=== PATIENT | female | born 1940 | race Caucasian/White ===

== ENCOUNTER 2019-07-29 13:59 | Inpatient (IN) ==
[2019-07-29] MEDS ORDERED: COLACE PO PRN (14:13)
[2019-07-29] MEDS ORDERED: TYLENOL PO PRN (14:13)
[2019-07-29] MEDS ORDERED: SALINE LOCK IV FLUID XX ONE (14:13)
[2019-07-29] MEDS ORDERED: ZOFRAN IV PRN (14:13)
[2019-07-29] MEDS ORDERED: LEVAQUIN 500 MG/D5W 500 MG/100 ML IVPB IV ONE (14:22)
[2019-07-29 16:56] LABS: BASO# 0.01 X1000 (0.0-0.2); BASO% 0.2 % (0.0-0.8); EOS# 0.21 X1000 (0.0-0.7); EOS% 3.3 % (0.0-10.0); HEMATOCRIT 37.9 % (37.0-47.0); HEMOGLOBIN 12.5 g/dL (12.0-16.0); LYMPH# 1.54 X1000 (1.2-3.4); LYMPH% 24.6 % (20.5-51.1); MCH 31.1 PG (27-31); MCV 94.3 FL (81-99); MONO# 0.59 X1000 (0.11-0.59); MONO% 9.4 % (1.7-9.3); MPV 10.1 FL (7.4-10.4); NEUT# 3.92 X1000 (1.4-6.5); NEUT% 62.5 % (42.2-75.2); PLT 257 X1000 (130-400); RBC 4.02 XMIL (4.2-5.4); RDW 13.5 % (11.5-14.5); WBC 6.27 X1000 (4.8-10.8)
[2019-07-29 17:00] LABS: INR 0.93; PROTIME 12.5 Seconds (11.0-16.0)
[2019-07-29 17:11] LABS: ALB/GLOB RATIO 1.6; ALBUMIN 3.8 g/dL (3.5-5.0); CALCIUM 8.2 mg/dL (8.8-10.2); CREATININE 1.2 mg/dL (0.5-0.9); POTASSIUM 4.1 mmol/L (3.5-5.1); TOTAL BILIRUBIN 0.22 mg/dL (0.20-1.00); TOTAL PROTEIN 6.2 g/dL (6.3-8.3)
--- NOTE | 2019-07-29 17:27 | Diag Imaging Result Doc PS360 ---
EXAM: CT EXT LOWER LEFT W/O CON HISTORY: LLE anterior schinn abscess r/o gaseous collection TECHNIQUE: CT left lower extremity without contrast. COMPARISON: None. No plain films obtained. FINDINGS: No fracture. No dislocation. Minimal anterior skin thickening and subcutaneous edema inferiorly. No well-defined fluid collection. No air. IMPRESSION: Minimal skin thickening and subcutaneous edema. This exam was performed using automated exposure control, adjustment of mA or kV according to patient size, and/or use of iterative reconstruction technique. Electronically signed by Ang Cervantes 07/29/2019 5:25 PM
--- NOTE | 2019-07-29 17:36 | HISTORY AND PHYSICAL ---
ATTENDING PHYSICIAN: Miguel Ángel Jackson DO. ADMITTING PHYSICIAN: Miguel Ángel Jackson DO. CONSULTING PHYSICIANS: Including Dr. Jose Morin, General Surgery service and Dr. Roderick Lopez, Infectious Disease service. HPI: Mrs. Guerra is a pleasant 79-year-old female who carries a variety of diagnoses including but not limited to idiopathic scoliosis involving the thoracic and lumbosacral region, presence of cardiac pacemaker, osteoporosis, obstructive sleep apnea, elevated liver enzymes, dyslipidemia, insomnia, hypothyroidism, history of simple cysts of the liver, chronic pain syndrome, reflux and a history of spinal stenosis presented to the internal medicine clinic on the for annual wellness visit as well as evaluation for lesion on the left lower extremity. There was noted a 3 x 1.3 cm erythematous base with a central raised nodule somewhat concerning for a keratoacanthoma versus skin lesion which had become secondarily infected with subcutaneous abscess, based on the absence of fluctuance and evidence of lymphangitic spread and other systemic symptoms it was felt that starting her on oral doxycycline with interval followup in 7 days was appropriate however she called me on Wednesday stating the pain of the lower extremity has awakened her in the middle of the night with throbbing and she is unable to bear weight on that extremity, the area has opened up and started to drain mucopurulent drainage. Based on its size and waking her up from sleep at night creating some functionally issues with waking and bearing weight she is admitted to the internal medicine service for further diagnostic imaging and surgical consultation for I and D unit. She will be a direct admit through the emergency room. MEDICATIONS ON ADMISSION: Meloxicam 7.5 mg once daily, C-Naltrexone 6 mg 2 tablets daily, Zofran 4 mg as needed, alprazolam 0.25 mg p.o. daily p.r.n., Percocet 10/325 one p.o. q.i.d. p.r.n. this is managed through he pain clinic, Lomotil 0.025/2.5 one p.o. daily p.r.n., multivitamin over-the- counter, glucosamine llft-fgw-mkkdegf, cumin efoj-iqz-bzrqwhs, collagen kxuw-ryf-pptkeys, probiotic aoba-qgp-rphowkv, Atrovent nasal spray 1 spray each nostril t.i.d. p.r.n., Restoril 30 mg p.o. at bedtime, Prilosec 40 mg once daily and Topical Voltaren gel 2-4 g apply as directed. FAMILY HISTORY: Father 76 possible heart attack, mother 91 obstructive bowel also history of cervical cancer, brother 29 years old accidental drowning, brother 13 accidental hunting shooting sister 32 motor vehicle accident with history of breast cancer and brother 65 hit by a car while riding a bike, brother 84 secondary to heart problems, patient is the sole survivor of her family as of summer 2018. Patient's end of life/ advanced directive is reasonable medical effort. Patient is with 2 children 61 - year-old boy and 59-year-old boy she has 6 grandchildren 2 step grandchildren and 13 great grandchildren, she has been for the 2nd time in 2019 for less than a year after 48 and half years of previous in 2013. 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 Other specialist involved in care including cardiology Dr. Goodson, gastroenterology Dr. Rosario, ophthalmology Dr. Santos, pain clinical specialist medical device Dr. Peacock, pulmonary medicine Dr. Youngblood, urology Dr. Joshua and Dr. Patton, dermatology Dr. Dominick Jackson and automatic oven operator Dr. Corona in [place]. IMMUNIZATION STATUS: Patient in need of Tdap, patient opting out of Prevnar 13 as of 03/16/2019, patient opting out of a varicella as of 03/16/2019, patient opting out of Pneumovax as of 03/16/2019, patient opting out of viral influenza as of 03/16/2019. PAST SURGICAL HISTORY: Back surgery in 2000 and in 2013, 2001 for lumbar back surgery in 2013 for ruptured disk L4-L5, hysterectomy without oophorectomy in , basal cell cancer removed from the nose in January, pacemaker placement in 1998, redo in 2010, venous ligation in the in the left leg in 12/15/2017, has been no surgery since December 2017 as of March 2019. REVIEW OF SYSTEMS: Unremarkable except that noted within the HPI above. Recent vitals blood pressure 130/80, pulse at 64, temperature at 97.5 degrees, saturating 90% on room air, patient weighed 164 pounds, BMI is 28.21.HEENT: Normocephalic, atraumatic, pupils are unremarkable. Neck: Soft and supple without lymphadenopathy or bruits. Cardiovascular: Regular rate and rhythm without murmurs gallops or rubs. Lungs: Clear. Abdomen: Benign. Extremities: Left lower extremity showing a left lower anterior spicer region with a 3 cm erythematous based and a central 1+ cm raised papule/lesion which had the appearance of a irritated keratoacanthoma versus a local abscesses versus basal cell, there is no evidence of lymphangitic spread, there is minimal tenderness with dorsi and plantar flexion of the left foot and ankle. LABORATORY: Ordered at the time admission including a CBC, CMP and PT/INR. IMPRESSION: 79-year-old with left lower extremity lesion complicated by mucopurulent drainage and now nocturnal pain based on progression over the past 48 to 72 hours she will be admitted to the internal medicine service with general surgery and infectious disease consultation, will be proceeding with a noncontrasted imaging study of the left lower extremity to rule out any evidence of anaerobic infection as manifested by radiographic evidence of the gaseous collection in the subcutaneous tissue, she will be transitioned to Levaquin 500 mg once daily IV,d doxycycline 100 mg twice daily will be stopped, she is allergic only to Latex and Macrobid. Awaiting further diagnostic imaging and recommendations from specialist, the patient and understand the course of treatment and plan, they have been directed to the emergency room and the floor has been instructed to call me when she arrives to the floor, no further issues at this time. cc: Miguel Ángel Jackson, DO GALL[place]AY
[2019-07-29] MEDS: NS 1,000 ML IV SCH (17:44)
[2019-07-29 19:09] LABS: URINE SOURCE CLEAN CATCH
[2019-07-29 19:13] LABS: BILIRUBIN URINE NEGATIVE (NEGATIVE); BLOOD URINE NEGATIVE (NEGATIVE); COLOR YELLOW; GLUCOSE URINE NEGATIVE (NEGATIVE); KETONE URINE NEGATIVE (NEGATIVE); LEUKOCYTES URINE TRACE (NEGATIVE); NITRITE URINE NEGATIVE (NEGATIVE); PROTEIN URINE NEGATIVE (NEGATIVE); SP GRAVITY URINE 1.014; TURBIDITY URINE CLEAR (CLEAR); UR EPITHELIAL CELLS <10 /HPF (<10); URINE BACTERIA 1+ /HPF; URINE RBC <10 /HPF (<10); URINE WBC <10 /HPF (<10); UROBILINOGEN URINE NORMAL (NORMAL)
[2019-07-30] MEDS: NS 1,000 ML IV SCH (09:44)
[2019-07-30] MEDS ORDERED: XYLOCAINE 1% INJ ONE (11:27)
[2019-07-30] MEDS ORDERED: MAXIPIME 2 GM in NS 100 ML IV SCH (12:00)
--- NOTE | 2019-07-30 12:46 | GENERAL SURGERY CONSULTATION ---
DATE: 07/30/2019 REASON FOR CONSULTATION: Left leg skin lesion. HISTORY OF PRESENT ILLNESS: This is an 79-year-old female who presents with a several week history of pain and swelling of her left lower leg skin. She had a history of a fall 15 years ago with trauma to the anterior left spicer with a depression left behind. She then developed a raised tender red area in this vicinity around 07/12/2019 or 07/13/2019. It has been painful to touch. It has also had some pain at rest and just recently over the last couple days has started draining some purulent drainage. She denies fever, chills, significant swelling of the leg or other systemic complaints. She had started oral doxycycline prior to admission without improvement. MEDICATIONS ON ADMISSION: Meloxicam, naltrexone, Zofran, alprazolam, Percocet, Lomotil, multivitamin, glucosamine, probiotic, Atrovent, Restoril, Prilosec. PAST SURGICAL HISTORY: Back surgery, hysterectomy, basal cell cancer removed from the nose, pacemaker placement, revision of pacemaker placement, left leg vein ligation. SOCIAL HISTORY: She quit smoking years ago. She drinks wine daily and has been retired for some time. FAMILY HISTORY: Positive for coronary artery disease, cervical cancer, breast cancer. REVIEW OF SYSTEMS: Ten systems reviewed and negative except as noted above. PHYSICAL EXAMINATION: Vital Signs: Temperature 97.7 degrees, pulse 61, respirations 18, blood pressure 149/81, O2 saturation 97%. General: Well-developed elderly female in no distress who looks stated age. HEENT: Normocephalic, atraumatic. Extraocular muscles intact. Pupils equal, round, reactive to light. Sclerae anicteric. Moist mucous membranes. Neck: Supple. No thyromegaly. CV: Regular rate and rhythm. Respiratory: Bilateral breath sounds. No work of breathing. Gastrointestinal: Soft, no organomegaly or mass. Nontender. Musculoskeletal: Moves all extremities equally well. Extremities: No clubbing, cyanosis, or edema. Skin: On the left anterior lower leg, there is a raised skin lesion just smaller than the size of a dime. There is some necrotic skin with underlying purulent drainage. It is tender to the touch. There is some mild surrounding erythema. LABORATORY: CBC and metabolic profile reviewed and unremarkable. Urinalysis negative. IMAGING: CT of the left leg shows minimal skin thickening and subcutaneous edema. ASSESSMENT AND PLAN: An 79-year-old female with left leg skin lesion of unclear etiology with secondary infection. We will plan debridement, drainage and skin biopsy today. I discussed the risks and benefits with her including bleeding, slowly healing wound, ongoing infection and other imponderables. She understands and agrees to proceed. cc: MD Miguel Ángel Kumar, DO
--- NOTE | 2019-07-30 13:48 | OPERATIVE NOTE ---
PROCEDURE DATE: 07/30/2019 PREOPERATIVE DIAGNOSIS: Left leg skin lesion with superimposed infection. POSTOP DIAGNOSIS: Left leg skin lesion with superimposed infection. PROCEDURE: Excisional debridement and skin biopsy of left leg lesion. SURGEON: Dr. Jose Morin. FINDINGS: There was a wound on the left anterior leg with underlying purulence and necrotic subcutaneous tissue. The area debrided was 1.4 x 1.0 cm width and length and 0.4 mm of depth. The depth was down through the subcutaneous tissue to the deep fascia but did not include fascial debridement. There was no exposed bone. TECHNIQUE: The wound was prepped with Betadine and sterile towels. 1% lidocaine was used to anesthetize the skin around the lesion. A scalpel was used to sharply excise the overlying necrotic skin. This tissue was put in formalin for pathologic examination. Underneath there was purulent and necrotic soft tissue. This was debrided out sharply with a knife. I then covered the wound with a sterile 4 x 4 gauze. She tolerated this well. There were no apparent complications. cc: MD Miguel Ángel Kumar DO
--- NOTE | 2019-07-30 14:09 | INFECTIOUS DISEASE CONSULT REP ---
DATE: 07/30/2019 CONCLUSION: The patient has an infected looking area on her left leg. It is erythematous and it has an eschar in the middle. RECOMMENDATIONS: I have started the patient on a combination of Zyvox and cefepime. Some of the side effects of the antibiotics, including rash, diarrhea, and hematotoxicity have been explained the patient who agrees with treatment. It is my understanding that Dr. Morin is going to perform local surgery on the leg today. I have requested that a culture be taken at the time of surgery from the leg. DISCUSSION: The patient tells me that approximately 10 years ago she fell and injured her left leg and approximately 3 weeks ago, the area where she fell became erythematous and swollen. It also about 10 days ago started draining a white and then a clear colored fluid. The patient had a CT scan of the leg. It did not show an abscess and it did not show any bone abnormality. 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 She has had a hysterectomy. REVIEW OF SYSTEMS: Eyes and ears: She does not have a problem seeing or hearing. Neck: No stiffness. Respiratory: No cough or shortness of breath. Cardiac: No chest pain or palpitations. GI: No nausea, vomiting, or diarrhea. : No dysuria or flank pain. Bones, joints, muscles: The patient told me she does have osteoarthritis. Neurologic: No seizures, no loss of motor or sensory function. PREVIOUS HOSPITALIZATIONS AND OPERATIONS: Has had removal of a skin cancer, placement of a pacemaker. MEDICAL DISEASES: Positive for skin cancer, osteoarthritis and bradycardia necessitating implantation of a permanent pacemaker. INFECTIOUS DISEASE HISTORY: Positive for urinary tract infection. Negative for pneumonia. FAMILY HISTORY: Positive for myocardial infarction and cancer. SOCIAL HISTORY: [place] She is . ALLERGIES: She is allergic to Macrobid and codeine. MEDICATIONS: At home, she takes recently doxycycline. She also takes Mobic, ReVia, and oxycodone. PHYSICAL EXAMINATION: Vital Signs: Temperature is 97 degrees, pulse 61, respirations 18, blood pressure 149/81. Patient is 5 feet 6 inches tall, weighs 140 pounds. General: This is a healthy- appearing, elderly female. She is in no acute distress. Head/eyes/ears/nose/throat: She can hear my spoken words and see near objects. I do not see any white patches on her tongue. Neck: No pain with movement. Lungs: Clear to auscultation. Cardiovascular: Regular heart rate. Thorax: Thorax patient has a paced permanent pacemaker present in the upper left chest. The site is not swollen or tender. Abdomen: Soft and nontender. Neurologic: The patient is alert. She can move her extremities. There is no tremor. Her sensation is intact to touch. Her memory was intact as regarding her medical history. Extremities: Anteriorly on the lower part of the patient's left leg, there is an erythematous, fluctuant area with a with an eschar in the middle of it. The area is tender. Thank you for the consult. cc: MD Miguel Ángel Cornejo, DO [facility]
[2019-07-30] MEDS: ZYVOX PO SCH ×2 (16:18→18:23)
[2019-07-30 17:46] VITALS: BP 128/92
--- NOTE | 2019-07-30 19:15 | DISCHARGE SUMMARY ---
ADMISSION DATE: 07/29/2019 DISCHARGE DATE: 07/30/2019 DISCHARGE DIAGNOSES: 1. Cutaneous abscess of the left lower extremity. 1. Cellulitis of the left lower extremity. 2. Pain in the inferior anterior lower extremities secondary to #1 and #2. 3. Difficulty walking secondary to #1 and #2 . 4. Progressive pain secondary to #1 and #2. PROCEDURES: Including a CT scan of lower extremity on 07/29/2019 failing to demonstrate any evidence of subcutaneous gas suggestive of anaerobic abscess, excisional debridement and skin biopsy of left lower leg lesion on 07/30/2019 by the general surgery service. HOSPITAL COURSE: Patient was admitted on the with progressive and refractory pain in the left lower extremity with drainage of mucopurulent from what appeared to be a localized and subcutaneous abscess CT scan failing to demonstrate any evidence of gaseous pockets beneath the skin therefore surgery was consulted recommending excisional debridement and surgical culturing of the wound secondary to poor and/or slow response to oral antibiotic. Infectious Disease was also consulted recommending cefepime and Zyvox combination pending return of wounds culture. Patient's pain was markedly improved once the area had been surgically debrided. She is requesting to go home. I see no contraindication to allow her to continue her recovery at home. She does have followup with me in the next 5 to 7 days also with general surgery service. A single attempt earlier in the day to contact Dr. Lopez for recommendations for outpatient therapy were unsuccessful. Patient will be continued on doxycycline 100 mg twice daily pending return of surgically obtained cultures. DISPOSITION: I have spoken to the patient (this evening by phone), as well as having seen the patient today in rounds in the hospital just prior to surgical debridement. She is interested in going home this evening and I see no contraindication for her to be discharged to home with interval followup. She has an appointment in [place] early tomorrow morning. She has requested that she not have to cancel this appointment. I advised that even if she did not have an appointment, I would still allow her to go home and recover in her own home. The patient is released with interval followup as discussed. OSB D/C different day cc: Miguel Ángel Jackson, DO G[place]AY
== END 2019-07-30 18:54 | disposition home or self-care (01) | DRG 572 ==
LOC: DIRADM 13:59 → EDIPHOLD 15:51 → 4N 18:33
PROVIDERS: ADMIT Internal Medicine; ATTEND Internal Medicine

== ENCOUNTER 2019-12-25 17:07 | Inpatient (IN) ==
[2019-12-25] MEDS ORDERED: SALINE LOCK IV FLUID XX ONE (17:18)
[2019-12-25 19:26] LABS: INR 0.99; PROTIME 13.1 Seconds (11.0-16.0)
[2019-12-25] MEDS ORDERED: LEVAQUIN 750 MG/D5W 750 MG/150 ML IVPB IV SCH (19:30)
[2019-12-25 19:34] LABS: ALB/GLOB RATIO 1.3; ALBUMIN 3.6 g/dL (3.5-5.0); CALCIUM 9.4 mg/dL (8.8-10.2); CREATININE 1.1 mg/dL (0.5-0.9); POTASSIUM 4.4 mmol/L (3.5-5.1); TOTAL BILIRUBIN 0.31 mg/dL (0.20-1.00); TOTAL PROTEIN 6.3 g/dL (6.3-8.3)
--- NOTE | 2019-12-25 20:03 | HISTORY AND PHYSICAL ---
INDICATION FOR ADMISSION: Acute abdominal pain. ADMITTING PHYSICIAN: Dr. Miguel Ángel Jackson. CONSULTING PHYSICIAN: Dr. Justin Slaughter. HISTORY OF PRESENT ILLNESS: Ms. Guerra is a pleasant 79-year-old patient of mine with past medical history consistent with chronic low back pain, hepatic cyst, hypothyroidism, dyslipidemia, obstructive sleep apnea, osteoporosis, scoliosis of the lumbosacral region as well as the thoracic region, presence of cardiac pacemaker, history of spinal stenosis and history of diverticular disease. Last colonoscopy of record was noted to be 2016. She presents for evaluation of abdominal pain. She reports 2 months of abdominal pain on and off, perhaps 810 in nature, sharp and short lived. She denies any long-term pain complaints such as hours or days worth of pain. Nothing improves the pain. She walks with pain localized in the left lower quadrant and lying on the affected side she has pain. She admits to more frequent urination, looser stool. Denies any fever. Denies any night sweats, and has had nausea for several years. Last EGD and colonoscopy in 2017. Findings on colonoscopy consistent with friable anal canal and diverticular disease. Small bowel biopsy was noted to be negative. She does have a previous history of H pylori positive biopsy in 2017. She presents with this history. She is noted to have a markedly abnormal exam and a low-grade fever to 99.9 degrees, as well as an elevated white blood cell count in excess of 13,000. Her exam is suggestive of acute abdomen with guarding, rebound, and peritoneal signs. I have personally spoken with Dr. Slaughter, General Surgery, and we will be admitting the patient to the internal medicine service for further diagnostic imaging and general surgical consultation. ALLERGIES: Latex, Macrobid, and codeine. MEDICATIONS ON ADMISSION: 1. Meloxicam 7.5 mg once daily. 2. Naltrexone 12 mg once daily. 3. Zofran 4 mg p.r.n. 4. Alprazolam 0.25 mg p.o. at bedtime. 5. Lomotil 1 p.o. daily p.r.n. 6. Bzez-dkb-baweast multivitamin. 7. Ocfg-txe-oqygckd glucosamine. 8. Ezci-kka-hwhbjjz curamin. 9. Ghyy-ahf-uxwrgws collagen. 10. Lrgu-czn-nxjyrdo probiotic. 11. Robaxin 750 mg b.i.d. FAMILY HISTORY: Father 76, [place]. Mother 91, bowel blockage. Brother 29, drowning. Brother 13, accidental gunshot wound. Sister 32, motor vehicle accident. Brother 65, vehicular accident while riding a bicycle. Brother 84, heart problems. The patient is the sole survivor of her family. There is a family history of myocardial infarction, cervical cancer, breast cancer, and cardiac dysrhythmia with pacemaker placement. SOCIAL HISTORY: Patient is with 2 children, a total of 13 grandchildren, both natural and step and/or adopted. Patient for nearly 50 years, a in May 2014, then remarried in 2018. 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 She has not worked in 27 years. The patient admits to historical tobacco use, but none in more than 30 years, and has a glass of white wine once per week. Last time out of the country was 2018 with a cruise to [place] in the summer. She actually has taken a second cruise to [place], [facility], and [facility] as recently as December 2018. No out of country or out of state travel since early October 2019. The patient recently new to the clinic in the summer. Last runner man physical noted to be 03/16/2019. PAST SURGICAL HISTORY: 1. Multiple back surgeries in 2000 and 2013. 2. Partial hysterectomy in 1961. 3. Basal cell cancer from the nose in January 2017. 4. Pacemaker #1 in 1998; replacement pacemaker in 08/2011. 5. Left leg venous ablation, December 2017. 6. No surgery since December 2017 as of March 2019. As per chart, last CT scan of the abdomen and pelvis noted to be August 2018; bilobed right liver, peripheral vascular disease involving the aorta, and scoliosis of the thoracic spine. EGD and colonoscopy dated March 2017 as per history above. PHYSICAL EXAMINATION: VITAL SIGNS: Blood pressure 125/82, pulse at 64, saturation 94%, temperature 99.9 degrees. Patient weighing 161 pounds with BMI of 27.63. HEENT: Normocephalic, atraumatic. Pupils are equal and reactive to light and accommodation. NECK: Soft and supple without lymphadenopathy or bruits. CARDIOVASCULAR: Regular rate and rhythm without murmurs, gallops, or rubs. LUNGS: Clear. ABDOMEN: Soft with Rovsing sign suggested in the right upper and left upper quadrants and localizing to the left lower quadrant. The patient is exquisitely tender with some guarding and some peritoneal rebound suggested with mild palpation. Patient reports pain with left lower leg raising and standing with walking. EXTREMITIES: Benign, without clubbing, cyanosis, or edema. NEUROLOGIC: Cranial nerves 2 through 12 are grossly intact. Patient is alert and oriented x3 without any cognitive deficiencies. LABORATORY DATA: CBC obtained in the office: White blood cell count greater than 13,000. BUN and creatinine are pending at the time of admission. Urinalysis is obtained with nonspecific abnormalities. Culture is pending. IMPRESSION: 79-year-old with left lower quadrant pain with acute abdomen as part of admission exam, suggestive for colitis versus diverticulitis, concerning with peritoneal signs that there may be occult pericolonic abscess as cause for acute abdomen and elevated white blood cell count. The patient is admitted to the internal medicine service for CT scan of the abdomen and pelvis and general surgical consultation. Initiation of empiric Levaquin and Flagyl for coverage, transitioning to broader spectrum antibiotic pending return of radiological findings. The patient and understand the course of treatment and plan. No further issues at this time. Note is dictated on the evening of admission. I have also spoken personally to Dr. Slaughter who has agreed to see the patient in surgical consultation. cc: Miguel Ángel Jackson,
[2019-12-25] MEDS ORDERED: TYLENOL PO PRN (20:09)
[2019-12-25] MEDS ORDERED: PHENERGAN IV PRN (20:10)
[2019-12-25] MEDS ORDERED: SODIUM CHLORIDE 0.9% INJ PRN (20:10)
[2019-12-25] MEDS ORDERED: MOTRIN PO PRN (20:11)
[2019-12-25] MEDS ORDERED: MORPHINE IV PRN (20:13)
[2019-12-25] MEDS: NS 1,000 ML IV SCH (20:31)
[2019-12-25] MEDS: FLAGYL 500 MG/NS 500 MG/100 ML IVPB IV SCH (20:34)
--- NOTE | 2019-12-25 20:58 | CONSULTATION ---
DATE OF CONSULTATION: 12/25/2019 HISTORY OF PRESENT ILLNESS: Ms. Maddison Guerra is an 79-year-old, white female patient of Dr. Bradford Jackson who for the last two days has been experiencing worsening left lower quadrant pain. He evaluated her in his outpatient office this evening and direct admitted her to [facility] for further treatment of her left lower quadrant abdominal pain. A CT scan has been ordered but not done. We were asked to evaluate her because of her abdominal pain. PAST MEDICAL HISTORY: Partial hysterectomy, arthritis, pacemaker. MEDICATIONS: Meloxicam. ALLERGIES: Codeine. SOCIAL HISTORY: She is retired. Her was present at the bedside. She does not smoke. REVIEW OF SYSTEMS: A 14-point review of systems was reviewed with the patient. She has been healthy but she has had intermittent pain in the left lower quadrant over several months but it went away on its own but for the last two days this has become more severe. FAMILY HISTORY: Was reviewed with the patient but was noncontributory. EXAM: Vital Signs: Her heart rate is 67, blood pressure 118/67, O2 saturation 98%. She is afebrile. She is 5 feet 6 inches, 161 pounds. General: Ms. Guerra is awake. She appears to be comfortable, no acute distress. HEENT: No jaundice. No oral lesions. Satisfactory dentition. Neck: No cervical or supraclavicular lymphadenopathy. Heart: Has a regular rate. Lungs: Clear to auscultation and percussion bilaterally. Abdomen: Soft. She had point tenderness in left lower quadrant of the abdomen. There was no palpable mass. No evidence of hernia. No costovertebral tenderness. Rectal and Vaginal: Exams were not performed. Extremities: She does have palpable peripheral pulses. No peripheral edema. Neurological: No focal deficits. LABORATORY DATA: Her white blood cell count was reported to be elevated per Dr. Jackson. I think it was 11. Electrolytes are within normal limits. BUN is 20. Creatinine 1.1. Liver function tests are normal as are her coagulation studies. IMAGING: CT scan of her abdomen and pelvis has not been performed. Evidently our CT scan is out at [facility]. She would have to be transported to [facility] for her CT scan this evening. We will delay that CT scan until tomorrow morning as long as she is receiving her IV antibiotics, and I have discussed that with the admission nurse down here in the emergency department. PLAN: She is due to receive Levaquin and Flagyl. She is being admitted to room 109. We will give her clear liquids. She is also going to receive IV fluids. I feel that she probably has acute sigmoid diverticulitis. I am unsure of any complications such as abscess or free air. It does appear to be localized to her left lower quadrant and she does not appear to be toxic. I do not feel she needs urgent surgery this evening. We will repeat a white blood cell count in the morning. We will follow along with you. Thank you for this consult. cc: MD Miguel Ángel Frias, DO
[2019-12-25] MEDS ORDERED: LOVENOX SUBQ SCH (21:00)
[2019-12-25] MEDS ORDERED: ROBAXIN PO SCH (21:45)
[2019-12-26] MEDS: FLAGYL 500 MG/NS 500 MG/100 ML IVPB IV SCH ×3 (00:49→14:02)
[2019-12-26 04:58] LABS: BASO# 0.03 X1000 (0.0-0.2); BASO% 0.4 % (0.0-0.8); EOS# 0.12 X1000 (0.0-0.7); EOS% 1.5 % (0.0-10.0); HEMATOCRIT 36.4 % (37.0-47.0); HEMOGLOBIN 11.8 g/dL (12.0-16.0); IMM GRAN# 0.02 X1000 (0.0-0.04); IMM GRAN% 0.3 % (0.0-0.5); LYMPH# 1.67 X1000 (1.2-3.4); LYMPH% 21.1 % (20.5-51.1); MCH 29.6 PG (27-31); MCHC 32.4 g/dL (33-37); MCV 91.2 FL (81-99); MONO# 0.75 X1000 (0.11-0.59); MONO% 9.5 % (1.7-9.3); MPV 9.3 FL (7.4-10.4); NEUT# 5.31 X1000 (1.4-6.5); NEUT% 67.2 % (42.2-75.2); PLT 239 X1000 (130-400); RBC 3.99 XMIL (4.2-5.4); RDW 13.6 % (11.5-14.5)
[2019-12-26] MEDS: NS 1,000 ML IV SCH (06:31)
[2019-12-26] MEDS ORDERED: ROBAXIN PO SCH (09:00)
[2019-12-26] MEDS ORDERED: MOBIC PO SCH (09:00)
[2019-12-26] MEDS ORDERED: PATIENT'S OWN MED PO SCH ×2 (09:00→21:00)
--- NOTE | 2019-12-26 09:38 | PROGRESS NOTE ---
DATE: 12/26/2019 SUBJECTIVE: Ms. Maddison Guerra is now hospital day 2, admitted with left lower quadrant pain, which we assume is acute sigmoid diverticulitis. She has been placed on IV Levaquin and Flagyl, and this morning she states clinically, she has improved as far as her abdominal pain. Her white blood cell count has also returned to normal. We are still awaiting a CT scan. OBJECTIVE: Her heart rate is 61 to 120, blood pressure is 132/90, O2 saturation 93%, she is afebrile. She rates her pain scale as 4/10 in the left lower quadrant of her abdomen. She has been on liquids as part of her treatment for diverticulitis and while awaiting the CT scan. PLAN: I think the IV antibiotics are helping her, and we are awaiting the CT scan of her abdomen and pelvis with IV and oral contrast. Depending on her clinical improvement, her diet can be advanced. I will be out the rest of the week, and I will have [facility] to cover in my absence. cc: MD Miguel Ángel Frias, DO
--- NOTE | 2019-12-26 12:08 | Diag Imaging Result Doc PS360 ---
EXAM: CT ABD/PELVIS W/PO AND IV CON INDICATION: LLQ pain TECHNIQUE: This exam was performed using automated exposure control, adjustment of mA or kV according to patient size, and/or use of iterative reconstruction technique. COMPARISON: None. FINDINGS: There is minimal subsegmental atelectasis and/or scarring at the lung bases. There is a small cyst at the dome of the liver. There are calcified granulomata in the liver and spleen. The liver and spleen are unremarkable, otherwise. The gallbladder, pancreas, adrenal glands, and kidneys are grossly unremarkable. The urinary bladder is distended and is essentially unremarkable, otherwise. There has been a prior hysterectomy. There is extensive diverticulosis coli, predominantly involving the sigmoid colon and there is focal pericolonic inflammatory change that arises from a diverticulum at the proximal sigmoid colon consistent with acute diverticulitis. There is trace free fluid in this region. No discrete abscess or free abdominal gas is appreciated to indicate perforation. There is no obstructive bowel pattern. The remainder of the GI tract is essentially unremarkable. There is multilevel spondylosis and scoliosis and there are degenerative changes of both hips. There is no evidence of acute osseous abnormality. IMPRESSION: 1.Sigmoid colonic diverticulitis with no evidence of perforation. 2.Other incidental/nonacute findings detailed above. Electronically signed by Chris Driver 12/26/2019 12:06 PM
[2019-12-26 18:24] VITALS: BP 127/92
[2019-12-27] MEDS ORDERED: PATIENT'S OWN MED PO SCH (09:00)
== END 2019-12-26 18:28 | disposition home or self-care (01) | DRG 392 ==
LOC: DIRADM 17:07 → EDIPHOLD 18:32 → 1N 20:18
PROVIDERS: ADMIT Internal Medicine; ATTEND Internal Medicine